=== PATIENT | male | born 1965 | race Caucasian/White ===

== ENCOUNTER → 2025-03-03 | Outpatient (CLI) | payer BC ==
--- NOTE | 2025-03-03 10:21 | CA ---
Transthoracic Echo Report Name: Ady Rice Age: 59 Gender: M : 1965 Exam Date: 03/03/2025 08:36 Exam Location: [facility] Ht (in): 69 Wt (lb): 245 Ordering Physician: Waqas Devries MD Attending/Referring Phys: [id number], Jaycob [employer] Assembly Repairer Rebecca Thompson, KATELYN Procedure CPT: Indications: I10 ESSENTIAL (PRIMARY) HYPERTENSION Cardiac Hx: Technical Quality: Good Contrast 1: Total Dose (mL): Contrast 2: Total Dose (mL): MEASUREMENTS (Male / Female) Normal Values 2D ECHO LV Diastolic Diameter PLAX 4.9 cm 4.2 - 5.9 / 3.9 - 5.3 cm LV Systolic Diameter PLAX 3.1 cm IVS Diastolic Thickness 1.4 cm 0.6 - 1.0 / 0.6 - 0.9 cm LVPW Diastolic Thickness 1.4 cm 0.6 - 1.0 / 0.6 - 0.9 cm LV Relative Wall Thickness 0.6 RV Internal Dim ED PLAX 3.5 cm LA Systolic Diameter LX 3.8 cm 3.0 - 4.0 / 2.7 - 3.8 cm LV Diastolic Volume MOD 4C 141.1 cm??? LV Systolic Volume MOD 4C 62.6 cm??? LV Ejection Fraction MOD 4C 55.6 % LV Cardiac Index MOD 4C 2549.9 cm???/min???m??? LV Diastolic Length 4C 8.8 cm LV Systolic Length 4C 7.5 cm LV Diastolic Volume MOD 2C 143.7 cm??? LV Systolic Volume MOD 2C 60.3 cm??? LV Ejection Fraction MOD 2C 58.0 % LV Cardiac Index MOD 2C 2710.3 cm???/min???m??? LV Diastolic Length 2C 8.5 cm LV Systolic Length 2C 7.6 cm LA Volume 66.6 cm??? 18 - 58 / 22 - 52 cm??? LA Volume Index 28.1 cm???/m??? 16 - 28 cm???/m??? M-MODE Aortic Root Diameter MM 3.8 cm AV Cusp Separation MM 2.7 cm DOPPLER AV Peak Velocity 151.7 cm/s AV Peak Gradient 9.2 mmHg MV Area PHT 3.6 cm??? Mitral E Point Velocity 115.7 cm/s Mitral A Point Velocity 123.7 cm/s Mitral E to A Ratio 0.9 MV Deceleration Time 210.5 ms TR Peak Velocity 226.7 cm/s TR Peak Gradient 20.6 mmHg Right Ventricular Systolic Press 25.6 mmHg FINDINGS Left Ventricle Left ventricular ejection fraction is estimated at 55-60 %. Left ventricular cavity size normal. Moderate concentric left ventricular hypertrophy. Right Ventricle Mild right ventricular dilatation. Right ventricular systolic pressure within normal limits. Right Atrium Mild right atrial dilatation. No right atrial thrombus or mass seen. Left Atrium Mildly increased left atrial volume. Mildly increased left atrial area. No left atrial thrombus or mass present. Mitral Valve Structurally normal mitral valve. Mild mitral annular calcification. Trace mitral regurgitation. Nonspecific thickening of posterior mitral leaflet Aortic Valve Trileaflet aortic valve. No aortic valve stenosis or regurgitation. Tricuspid Valve Structurally normal tricuspid valve. Mild tricuspid regurgitation. Pulmonic Valve Structurally normal pulmonic valve. Trace pulmonic regurgitation. Pericardium No pericardial effusion. Aorta Mild aortic dilatation at the level of the sinuses of valsalva 38 mm CONCLUSIONS Normal LV size and systolic function. Mitral annular calcification with nonspecific thickening of posterior mitral leaflet with mild mitral and tricuspid insufficiency no pulmonary hypertension. No pericardial effusion Previewed by: Dr. Robby Reina MD (Electronically Signed) Final Date: 03 Mar 2025 10:20
== END | disposition home or self-care (01) ==
LOC: RADECHMAIN 08:22
PROVIDERS: ATTEND Family Medicine
DX: I08.1 Rheumatic disorders of both mitral and tricuspid valves (principal); I10 Essential (primary) hypertension; R94.31 Abnormal electrocardiogram [ECG] [EKG]
CPT/HCPCS: 93306

== ENCOUNTER → 2025-03-05 | Outpatient (CLI) | payer BC ==
--- NOTE | 2025-03-05 10:42 | CA ---
Stress Echo Report Ady Rice Age: 59 Gender: M : 1965 Exam Date: 03/05/2025 09:39 Exam Location: [facility] Ht (in): 69 Wt (lb): 245 Ordering Physician: Waqas Devries MD Referring Physician: Jaycob DELA CRUZ Laboratory Specialist: ALE[employer] Technologist Procedure CPT: Indication: R94.31 ABNORMAL EKG ICD-9 Codes: Rhythm: Patient History: ABN ECG, HTN, PALPITATIONS Cardiac Medications: NONE Medications in past 24 hours: Contrast: Stress Results Protocol: Joss Total dose(mL): Exercise Duration (min:sec): 9:[address] Depression (mm): Angina Score: Mccrary Score: METS: 10.7 Resting HR: 80 Resting BP: 178 / 68 Peak HR: 148 Peak BP: 220 / 66 Max Predicted HR: 160 93 % Max Predicted HR Target HR: 136 Double Product: [id number] Stress Summary: BP Response: Reason for Termination: MAX EXERTION/TARGET HR Cardiac Symptoms: NO SYMPTOMS ECG Analysis Resting ECG: Stress ECG: Arrhythmia: Echo Analysis Resting Echo: Peak Echo Analysis: MEASUREMENTS (Male/Female) Normal Values CONCLUSIONS Baseline EKG revealed sinus mechanism with a right bundle branch block pattern and repolarization abnormality. Patient walked on a standard Joss protocol for 9 minutes 14 seconds and achieved a maximal heart rate of 148 bpm. He developed fatigue and shortness of breath but did not have any chest pain to suggest angina. EKG remained inconclusive. There was no significant arrhythmia. By EKG criteria this is an inconclusive stress test because of resting EKG changes. Patient did not have any anginal symptoms. Baseline echo images revealed normal wall motion and wall thickening of all segments. At peak exercise there was excellent augmentation of contractility of all segments suggesting that there is no evidence of stress-induced ischemia on the study. Final impression: Fair exercise capacity, inconclusive stress test by EKG criteria because of resting EKG changes. Normal stress echocardiogram without evidence of ischemia. Dr. Robby Reina MD (Electronically Signed) Final Date: 05 Mar 2025 10:41
== END | disposition home or self-care (01) ==
LOC: RADNMMAIN 09:11
PROVIDERS: ATTEND Family Medicine
DX: R94.31 Abnormal electrocardiogram [ECG] [EKG] (principal); I45.10 Unspecified right bundle-branch block
CPT/HCPCS: 93351